=== PATIENT | male | born 1935 | race Caucasian/White ===

== ENCOUNTER 2021-04-16 18:31 | Emergency (ER) | payer MEDICARE ==
[~2021-04-16] VITALS: Ht 172.7 cm; Wt 78.5 kg
[2021-04-16 18:49] LABS: HEMATOCRIT 31.7 % (42.0-52.0); MEAN CELL VOLUME 92.2 fl (80.0-94.0); MEAN CORPUSCULAR HGB 30.2 pg (27.0-31.0); MEAN CORPUSCULAR HGB CONC 32.8 g/dl (33.0-37.0); MEAN PLATELET VOLUME 8.7 fl (9.6-12.3); PLATELET COUNT AUTOMATED 322 10*3/uL (130-400); RED BLOOD COUNT 3.44 10*6/uL (4.50-5.90); RED CELL DISTRI WIDTH 14.4 % (0-14.5); WHITE BLOOD COUNT 7.3 10*3/uL (4.8-10.8)
[2021-04-16 19:05] LABS: INTERNATIONAL NORM RATIO 1.1 (2.0-3.5)
[2021-04-16 19:07] LABS: ALBUMIN 3.1 gm/dl (3.1-4.5); CREATININE 1.44 mg/dL (0.70-1.30); POTASSIUM 4.1 mmol/L (3.5-5.1); TOTAL PROTEIN 7.7 gm/dL (6.4-8.2)
[2021-04-16 19:18] LABS: ATYPICAL LYMPHS 1 % (0-0); PLATELET SUFFICIENCY NORMAL (NORMAL); TOTAL CELLS COUNTED 100 #CELLS
[2021-04-16] MEDS ORDERED: PANTOPRAZOLE SO40 MG PO (19:44)
[2021-04-16] MEDS ORDERED: PREDNISONE20 M1 PO (19:45)
[2021-04-16] MEDS ORDERED: NATURE'S BLEND F1 MG PO (19:47)
[2021-04-16] MEDS ORDERED: DILTIAZEM HCL120 M2 PO (19:47)
[2021-04-16] MEDS ORDERED: ROPINIROLE HYD0.5 MG PO (19:47)
[2021-04-16] MEDS ORDERED: LOSARTAN POTASS25 M1 PO (19:48)
[2021-04-16] MEDS ORDERED: FUROSEMIDE20 M1 PO (19:48)
[2021-04-16] MEDS ORDERED: MESALAMINE E0.375 GM PO (19:49)
[2021-04-16] MEDS ORDERED: PRAVASTATIN SOD40 MG PO (19:50)
[2021-04-16] MEDS ORDERED: POTASSIUM CHLO20 ME4 PO (19:50)
[2021-04-16] MEDS ORDERED: METOPROLOL SUCC50 M1 PO (19:50)
== END 2021-04-16 22:39 | disposition home or self-care (01) ==
LOC: ED 18:31
PROVIDERS: Emergency Medicine
DX: R07.9 Chest pain, unspecified (principal); J81.1 Chronic pulmonary edema; Z79.899 Other long term (current) drug therapy